=== PATIENT | female | born 1950 | race Caucasian/White ===

== ENCOUNTER 2017-04-01 19:00 | Inpatient (IN) | payer MEDICARE, OTHER ==
[~2017-04-01] VITALS: Ht 127 cm; Wt 46.3 kg
--- NOTE | ~2017-04-01 | PN ---
PATIENT:DEMOND HUANG MEDICAL RECORD: [id number] LOCATION:[facility] ADMISSION DATE: 04/01/17 PROGRESS NOTE DATE OF SERVICE: 04/14/2017 SUBJECTIVE: The patient's case was discussed with staff. She has no new complaint. OBJECTIVE: The patient denies intent to harm herself or others. She generally tolerates her medicines well. ASSESSMENT: No change in diagnoses. PLAN: Brief supportive and educational interventions were made. Long Term prognosis is guarded. I anticipate the patient can be transitioned out of the hospital soon if this level of improvement is maintained. TRANSINT:[id number] Voice Confirmation ID: [id number] DOCUMENT ID: [id number] LULI RUELAS MD at 1024 CC: [id number] DICTATION DATE: 04/14/17 1037 OUTREACH ASSISTANT: 04/14/17 1051 ADM IN [facility] [address] [place] [address]
--- NOTE | ~2017-04-01 | PN ---
PATIENT:DEMOND HUANG MEDICAL RECORD: [id number] LOCATION:[facility] ADMISSION DATE: 04/01/17 PROGRESS NOTE DATE OF SERVICE: 04/15/2017 SUBJECTIVE: The patient's case was discussed with staff. She has no new complaint. OBJECTIVE: The patient is in good behavioral control with limited insight about her condition. She tolerates her medicines well. ASSESSMENT: No change in diagnoses. PLAN: The patient can be reasonably transitioned out of the hospital today. She will have follow up with her outpatient primary care physician. Her assisted prognosis is guarded. TRANSINT:[id number] Voice Confirmation ID: [id number] DOCUMENT ID: [id number] LULI RUELAS MD at 0847 CC: [id number] DICTATION DATE: 04/15/17 1317 DIESEL ENGINE ERECTOR: 04/15/17 1403 DIS IN 04/15/17 [facility] [address] [place] [address]
--- NOTE | ~2017-04-01 | PN ---
PATIENT:DEMOND HUANG MEDICAL RECORD: [id number] LOCATION:[facility] ADMISSION DATE: 04/01/17 PROGRESS NOTE DATE OF SERVICE: 04/13/2017 SUBJECTIVE: The patient's case was discussed with staff. She has no new complaint. OBJECTIVE: The patient is significantly impaired cognitively, but has not been threatening to harm herself or others. ASSESSMENT: No change in diagnoses. PLAN: Brief supportive and educational interventions were made. Group Home prognosis is guarded. TRANSINT:[id number] Voice Confirmation ID: [id number] DOCUMENT ID: [id number] LULI RUELAS MD at 1024 CC: [id number] DICTATION DATE: 04/13/17 1502 BOOK JACKET COVER MACHINE OPERATOR: 04/13/17 1524 ADM IN [place] [id number] [place] [address]
--- NOTE | ~2017-04-01 | PN ---
PATIENT:DEMOND HUANG MEDICAL RECORD: [id number] LOCATION:[facility] ADMISSION DATE: 04/01/17 PROGRESS NOTE DATE OF SERVICE: 04/06/2017 SUBJECTIVE: No new complaint. OBJECTIVE: The patient has done relatively well. No new problems noted. Placement options will likely be narrowed to at least an assisted living type of situation. On exam, mood is euthymic. Affect is rather childlike. Speech tends to be terse. Content of thought is negative for overt psychosis. Sensorium shows no change. ASSESSMENT: No change in diagnosis. PLAN: 1. Continue current treatment plan. 2. Continue supportive therapy. TRANSINT:[id number] Voice Confirmation ID: [id number] DOCUMENT ID: [id number] GUILLERMINA HERNDON III, MD at 1045 CC: [id number] DICTATION DATE: 04/06/17 1128 SMOKE CHASER: 04/06/17 1337 ADM IN [place] [address] [place] [id number]
--- NOTE | ~2017-04-01 | PN ---
PATIENT:DEMOND HUANG MEDICAL RECORD: [id number] LOCATION:[facility] ADMISSION DATE: 04/01/17 PROGRESS NOTE DATE OF SERVICE: 04/05/2017 SUBJECTIVE: No new complaint. OBJECTIVE: The patient remains delusional. She has been cooperative for the most part taking medications as prescribed. On exam, mood is for the most part euthymic. Affect is somewhat child-like. Speech is very simple in content and somewhat terse. Content of thought is positive for delusional ideation as described above. Sensorium is unchanged. ASSESSMENT: No change in diagnosis. PLAN: 1. Continue current medications. 2. Continue supportive therapy. TRANSINT:[id number] Voice Confirmation ID: [id number] DOCUMENT ID: [id number] GUILLERMINA HERNDON III, MD at 1013 CC: [id number] DICTATION DATE: 04/05/17 1100 CHIEF OF HARBOR PATROL: 04/05/17 1241 ADM IN [place] [id number] [place] [address]
--- NOTE | ~2017-04-01 | PN ---
PATIENT:DEMOND HUANG MEDICAL RECORD: [id number] LOCATION:[facility] ADMISSION DATE: 04/01/17 PROGRESS NOTE DATE OF SERVICE: 04/12/2017 SUBJECTIVE: No new complaint. OBJECTIVE: Staff reports the patient continues to behave in an extremely childlike and "spoiled" fashion. She becomes extremely petulant and for lack of a better word simply throws temper tantrums when she does not get her way. She does not like to participate in group activities and will dramatically throw herself back in her chair when people attempt to have her become involved. From a medical standpoint, she remains entirely stable. It will be explained to the family that the patient's behavior will in large degree determine what her eventual placement will be. On exam, the patient's mood is irritable. Affect is extremely shallow and childlike. Speech is characterized by whining tone of voice. Facial expression is scowling. Content of thought is focused primarily on her needs and somatic complaints. Sensorium shows no change. ASSESSMENT: No change in diagnosis. PLAN: 1. Continue current medications. 2. Continue supportive therapy. TRANSINT:[id number] Voice Confirmation ID: [id number] DOCUMENT ID: [id number] GUILLERMINA HERNDON III, MD at 0657 CC: [id number] DICTATION DATE: 04/12/17 1138 DEADENER: 04/12/17 1203 ADM IN [place] [address] [place] [address]
--- NOTE | ~2017-04-01 | PN ---
PATIENT:DEMOND HUANG MEDICAL RECORD: [id number] LOCATION:[facility] ADMISSION DATE: 04/01/17 PROGRESS NOTE DATE OF SERVICE: 04/11/2017 SUBJECTIVE: The patient asks when the basketball game will come on TV. OBJECTIVE: The patient has been fairly compliant, but has great difficulty managing her own activities of daily living. She frequently seems confused. For example, when staff asked her where she was this morning, she maintained that she was in [place] in a halfway. On exam, the patient's mood is fairly pleasant. Affect is very simple and childlike. Speech is also simple in form and content. Content of thought is negative for overt psychosis. Sensorium shows no change. ASSESSMENT: No change in diagnosis. PLAN: 1. Maintain current medications. 2. Continue supportive therapy. TRANSINT:[id number] Voice Confirmation ID: [id number] DOCUMENT ID: [id number] GUILLERMINA HERNDON III, MD at 0632 CC: [id number] DICTATION DATE: 04/11/17 0936 WELL SERVICE FLOOR WORKER: 04/11/17 1204 ADM IN [address] [place] [address]
--- NOTE | ~2017-04-01 | PN ---
PATIENT:DEMOND HUANG MEDICAL RECORD: [id number] LOCATION:[facility] ADMISSION DATE: 04/01/17 PROGRESS NOTE DATE OF SERVICE: 04/07/2017 SUBJECTIVE: No new complaint. OBJECTIVE: Staff reports the patient was much more difficult to manage yesterday. She was very argumentative, noncompliant with medication and required frequent redirection. On exam today, the patient's mood is angry. Affect is brittle. Speech is very simple in form and content. Content of thought is positive for nonspecific persecutory ideation. Sensorium shows no change. ASSESSMENT: No change in diagnosis. PLAN: 1. Adjust medications as indicated. 2. Continue supportive therapy. TRANSINT:[id number] Voice Confirmation ID: [id number] DOCUMENT ID: [id number] GUILLERMINA HERNDON III, MD at 0510 CC: [id number] DICTATION DATE: 04/07/17 1153 EMPLOYEE'S REPRESENTATIVE: 04/07/17 1227 ADM IN [place] [id number] [place] [id number]
--- NOTE | ~2017-04-01 | PN ---
PATIENT:DEMOND HUANG MEDICAL RECORD: [id number] LOCATION:[facility] ADMISSION DATE: 04/01/17 PROGRESS NOTE DATE OF SERVICE: 04/04/2017 SUBJECTIVE: No new complaint. OBJECTIVE: The patient has been cooperative over the last 24 hours. She has been started on Seroquel 25 mg b.i.d. and is tolerating this well. On exam, mood is euthymic. Affect is very constricted. Speech is low in volume and terse. Content of thought is unchanged. Sensorium unchanged. ASSESSMENT: No change in diagnosis. PLAN: 1. Maintain current medications. 2. Continue supportive therapy. TRANSINT:[id number] Voice Confirmation ID: [id number] DOCUMENT ID: [id number] GUILLERMINA HERNDON III, MD at 1002 CC: [id number] DICTATION DATE: 04/04/17 1117 ELASTIC ATTACHER OVERLOCK: 04/04/17 1341 ADM IN [place] [id number] [place] [address]
--- NOTE | ~2017-04-01 | PN ---
PATIENT:DEMOND HUANG MEDICAL RECORD: [id number] LOCATION:[facility] ADMISSION DATE: 04/01/17 PROGRESS NOTE DATE OF SERVICE: 04/09/2017 SUBJECTIVE: No new complaint. OBJECTIVE: The patient continues to behave in a very immature fashion. However, she has not been combative. On exam, mood is childlike and petulant. Affect is very shallow. Speech tends to be tangential. Content of thought focuses on somatic concerns and demands. Sensorium shows no change. ASSESSMENT: No change in diagnosis. PLAN: 1. Continue current medications. 2. Continue supportive therapy. TRANSINT:[id number] Voice Confirmation ID: [id number] DOCUMENT ID: [id number] GUILLERMINA HERNDON III, MD at 0848 CC: [id number] DICTATION DATE: 04/09/17 0806 SORT MANAGER: 04/09/17 1314 ADM IN [facility] [address] [place] [address]
--- NOTE | ~2017-04-01 | PN ---
PATIENT:DEMOND HUANG MEDICAL RECORD: [id number] LOCATION:[facility] ADMISSION DATE: 04/01/17 PROGRESS NOTE DATE OF SERVICE: 04/08/2017 SUBJECTIVE: No new complaint. OBJECTIVE: Staff report the patient exhibits manipulative behaviors, especially with the family. She becomes petulant and childlike when she thinks that she is not being and responded to in the way that she prefers. On exam, the patient's mood is somewhat irritable. Affect is very shallow and childlike. Speech is simple in form and content. Content of thought is unchanged. Sensorium unchanged. ASSESSMENT: No change in diagnosis. PLAN: 1. Continue all current medications. 2. Continue supportive therapy. TRANSINT:[id number] Voice Confirmation ID: [id number] DOCUMENT ID: [id number] GUILLERMINA HERNDON III, MD at 0727 CC: [id number] DICTATION DATE: 04/08/17 1106 COUNTY ADMINISTRATOR: 04/08/17 1132 ADM IN [place] [id number] [place] [id number]
--- NOTE | ~2017-04-01 | PSY ---
PATIENT NAME:DEMOND HUANG MEDICAL RECORD: [id number] : 48 LOCATION:[facility] ADMISSION DATE: 04/01/17 ACCOUNT: [id number] PSYCHIATRIC EVALUATION DATE OF EVALUATION: 04/02/17 IDENTIFYING DATA: This is the first halfway admission for this 67-year-old single white female. HISTORY OF PRESENT ILLNESS: This patient was referred by Dr. Lawson. The patient had been living at home with 24-hour a day care. She has a chronic disability, but the details of this are not known at the present time. However, what is known is that the patient has been showing increasingly severe psychotic symptoms. She has been exhibiting paranoid delusional ideation. She claims for example that she had [place] her will. She has exhibited a great deal of generalized anxiety, avoidance behavior, restlessness and agitation. Because of markedly worsened mental status, she was referred for evaluation. PAST MEDICAL HISTORY: Significant for type 2 diabetes, GERD, apparent parkinsonism and hypercholesterolemia. FAMILY HISTORY: Unknown. SOCIAL HISTORY: The patient is single. She is cared for by caregivers. She does have a sister that lives next door to her who was involved in her care. ALLERGIES: LISTED PENICILLINS AND SULFONAMIDE ANTIBIOTICS WELL CODEINE. MEDICATIONS: At the time of admission included Glucophage, Glucotrol, Pepcid, Neurontin, Sinemet, Prozac, Inderal, and Lipitor. MENTAL STATUS: On exam, this is an extremely short (4 feet 2 inches) white female in no acute distress. Mood is indeed anxious. Affect is very childlike. Speech is low in volume, high pitched and exhibits a great deal of hesitancy. Content of thought as noted above, the patient has had delusional, paranoid ideation. On sensorium testing, the patient is oriented to person as well as to year and the fact that she is in [place]. She is not correctly oriented as to the month or the day of the week. Remote recall is difficult to assess. The patient is a poor historian. Short term and immediate recall appear to be significantly impaired. 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 AXIS II: Deferred. AXIS III: Hypertension, type 2 diabetes, GERD, parkinsonism, hypercholesterolemia. AXIS IV: Severe. AXIS V: 34. PLAN: 1. The patient is admitted for further medical and psychiatric workup. 2. Daily supportive therapy. 3. We will work with family and referring agency regarding aftercare. TRANSINT:[id number] Voice Confirmation ID: [id number] DOCUMENT ID: [id number] GUILLERMINA HERNDON III, MD at 1830 CC: [id number] DICTATION DATE: 04/02/17 1119 TAFE LECTURER: 04/02/17 1230 ADM IN [place] [id number] [place] [address]
[2017-04-01 19:41] VITALS: BP 170/99; BMI 28.7
[2017-04-01 20:15] VITALS: BP 170/099
[2017-04-01 21:53] LABS: APPEARANCE HAZY (CLEAR); BILIRUBIN NEGATIVE (NEGATIVE); COLOR YELLOW (YELLOW); GLUCOSE NEGATIVE (NEGATIVE); KETONE NEGATIVE (NEGATIVE); NITRITE NEGATIVE (NEGATIVE); PROTEIN TRACE mg/dL (NEGATIVE); UROBILINOGEN NORMAL (NORMAL); WHITE CELLS - URINE 25-50 /hpf (0-5)
[2017-04-01 21:54] LABS: BACTERIA MANY /hpf (NONE SEEN); EPITHELIAL CELLS 0-5 /hpf (0-5); RED CELLS - URINE 0-5 /hpf (0-5)
[2017-04-01] MEDS ORDERED: BUSPAR10 MG PO (22:44)
[2017-04-01] MEDS ORDERED: PEPCID20 MG PO (22:44)
[2017-04-01] MEDS ORDERED: GLUCOTROL 5 MG T5 MG PO (22:45)
[2017-04-01] MEDS ORDERED: GLUCOPHAGE500 MG PO (22:46)
[2017-04-01] MEDS ORDERED: PROPRANOLOL HCL20 MG PO (22:47)
[2017-04-01] MEDS ORDERED: GABAPENTIN100 MG PO (22:47)
[2017-04-01] MEDS ORDERED: PROZAC10 MG PO (22:48)
[2017-04-01] MEDS ORDERED: CARBIDOPA-LEVO1 EAC4 PO (22:48)
[2017-04-01] MEDS ORDERED: LIPITOR20 MG PO (22:50)
[2017-04-02 05:59] LABS: BASOPHILS 0.1 % (0-2); EOSINOPHILS 2.8 % (0-7); HEMOGLOBIN 12.2 g/dL (12-16); IMMATURE GRANULOCYTES 0.2 % (0-5); LYMPHOCYTES 23.4 % (15-50); MCH 30.2 pg (26.0-34.0); MCHC 34.9 g/dL (31.0-37.0); MCV 86.6 fL (80.0-100.0); MEAN PLATELET VOLUME 9.3 fL (7.4-10.4); MONOCYTES 9.5 % (2-11); PLATELET COUNT 180 10x3/uL (130-400); RBC 4.04 10x6/uL (4.00-5.40); RDW 13.5 % (11.5-14.5); WBC 8.2 10x3/uL (4.8-10.8)
[2017-04-02 06:25] LABS: ALBUMIN 3.5 g/dL (3.4-5.0); ANION GAP 15.9 mmol/L (8-16); BILIRUBIN - TOTAL 1.3 mg/dL (0.2-1.3); CALCIUM 8.7 mg/dL (8.5-10.1); CARBON DIOXIDE 24.5 mmol/L (21.0-32.0); CHOL - HDL RATIO 2.1 ratio (2.3-4.1); CREATININE - SERUM 1.4 mg/dL (0.6-1.3); LDL-HDL RATIO 0.3 ratio (1.5-3.5); POTASSIUM - SERUM 3.4 mmol/L (3.5-5.1); PROTEIN - SERUM 6.4 g/dL (6.4-8.2); THYROID STIMULATING HORMONE 1.88 uIU/mL (0.36-3.74)
[2017-04-02 06:38] LABS: HEMOGLOBIN A1C 6.6 % (4.8-6.0)
[2017-04-02 07:43] VITALS: BP 148/091
[2017-04-02 19:30] VITALS: BP 115/71
[2017-04-03 08:30] VITALS: BP 151/83
[2017-04-03 19:30] VITALS: BP 140/76
[2017-04-04 06:07] LABS: VITAMIN D 25 HYDROXY 21.7 ng/mL (30.0-100.0)
[2017-04-04 08:46] VITALS: BP 139/076
[2017-04-04 12:12] LABS: FOLATE (FOLIC ACID) - SERUM 9.7 ng/mL (>3.0)
[2017-04-04 15:56] VITALS: BMI 28.7
[2017-04-04 19:54] VITALS: BP 155/1
[2017-04-05 07:26] LABS: RAPID PLASMA REAGIN Non Reactive (Non Reactive)
[2017-04-05 08:00] VITALS: BP 130/73
[2017-04-05 14:42] VITALS: Ht 127 cm; Wt 46.3 kg
[2017-04-05 21:23] VITALS: BP 139/84
[2017-04-06 08:00] VITALS: BP 152/87
[2017-04-07 10:00] VITALS: BP 150/87
[2017-04-07 19:43] VITALS: BP 148/70
[2017-04-08 09:51] VITALS: BP 130/97
[2017-04-08 19:44] VITALS: BP 136/87
[2017-04-09 10:17] VITALS: BP 171/94
[2017-04-09 19:27] VITALS: BP 141/53
[2017-04-10 07:00] VITALS: BP 165/95
[2017-04-11 06:24] LABS: ANION GAP 13.3 mmol/L (8-16); CALCIUM 8.5 mg/dL (8.5-10.1); CARBON DIOXIDE 27.1 mmol/L (21.0-32.0); CREATININE - SERUM 1.4 mg/dL (0.6-1.3); POTASSIUM - SERUM 3.4 mmol/L (3.5-5.1)
[2017-04-11 07:00] VITALS: BP 147/72
[2017-04-11 20:56] VITALS: BP 165/113
[2017-04-12 10:02] VITALS: BP 171/96
[2017-04-12 19:58] VITALS: BP 154/78
[2017-04-13 10:09] VITALS: BP 170/69
[2017-04-13 19:59] VITALS: BP 151/80
[2017-04-14 10:22] VITALS: BP 140/80
[2017-04-14 19:31] VITALS: BP 161/91
[2017-04-15 09:22] VITALS: BP 148/64
[2017-04-15] MEDS ORDERED: ACETAMINOPHEN325 MG PO (09:44)
[2017-04-15] MEDS ORDERED: SEROQUEL25 MG PO (09:45)
[2017-04-15] MEDS ORDERED: ATIVAN0.5 MG PO (09:45)
[2017-04-15] MEDS ORDERED: FLORAJEN3 CAPS460 MG PO (09:46)
[2017-04-15] MEDS ORDERED: INVOKANA100 MG PO (09:46)
[2017-04-15] MEDS ORDERED: LIDODERM 5 %1 PATCH TRANSDERM (09:47)
[2017-04-15] MEDS ORDERED: GLIMEPIRIDE2 MG PO (09:47)
[2017-04-15] MEDS ORDERED: VITAMIN D5000 UNIT PO (09:47)
[2017-04-15] MEDS ORDERED: VITAMIN B-121000 MCG PO (09:48)
== END 2017-04-15 10:30 | disposition home health service (06) | DRG 57 ==
LOC: D.PSYCH 19:00
PROVIDERS: Family Medicine; Psychiatry & Neurology Psychiatry
DX: G30.1 Alzheimer's disease with late onset (principal); F02.81 Dementia in other diseases classified elsewhere, unspecified severity, with behavioral disturbance; N17.9 Acute kidney failure, unspecified; N39.0 Urinary tract infection, site not specified; G20 Parkinson's disease; E11.22 Type 2 diabetes mellitus with diabetic chronic kidney disease; N18.9 Chronic kidney disease, unspecified; K21.9 Gastro-esophageal reflux disease without esophagitis; E78.00 Pure hypercholesterolemia, unspecified; E78.5 Hyperlipidemia, unspecified; B96.1 Klebsiella pneumoniae [K. pneumoniae] as the cause of diseases classified elsewhere; R26.9 Unspecified abnormalities of gait and mobility; E53.8 Deficiency of other specified B group vitamins; E55.9 Vitamin D deficiency, unspecified; M19.90 Unspecified osteoarthritis, unspecified site

== ENCOUNTER 2017-04-17 09:17 | Emergency (ER) | payer MEDICARE ==
[2017-04-05 14:42] VITALS: BMI 28.6
[~2017-04-17 09:17] MED LIST: ACETAMINOPHEN325 MG PO; ATIVAN0.5 MG PO; BUSPAR10 MG PO; CARBIDOPA-LEVO1 EAC4 PO; FLORAJEN3 CAPS460 MG PO; GABAPENTIN100 MG PO; GLIMEPIRIDE2 MG PO; GLUCOPHAGE500 MG PO; GLUCOTROL 5 MG T5 MG PO; INVOKANA100 MG PO; LIDODERM 5 %1 PATCH TRANSDERM; LIPITOR20 MG PO; PEPCID20 MG PO; PROPRANOLOL HCL20 MG PO; PROZAC10 MG PO; SEROQUEL25 MG PO; VITAMIN B-121000 MCG PO; VITAMIN D5000 UNIT PO
== END 2017-04-17 11:18 | disposition home or self-care (01) ==
LOC: D.ER 09:17
DX: S00.83XA Contusion of other part of head, initial encounter (principal); W05.0XXA Fall from non-moving wheelchair, initial encounter; Y93.89 Activity, other specified; Y92.129 Unspecified place in nursing home as the place of occurrence of the external cause; I51.7 Cardiomegaly; E11.9 Type 2 diabetes mellitus without complications; G20 Parkinson's disease; K21.9 Gastro-esophageal reflux disease without esophagitis; G30.9 Alzheimer's disease, unspecified; F02.80 Dementia in other diseases classified elsewhere, unspecified severity, without behavioral disturbance, psychotic disturbance, mood disturbance, and anxiety

== ENCOUNTER 2017-04-21 06:57 | Emergency (ER) | payer MEDICARE ==
[2017-04-05 14:42] VITALS: BMI 28.6
[2017-04-21 08:10] LABS: ALBUMIN 3.3 g/dL (3.4-5.0); ALKALINE PHOSPHATASE 149 U/L (46-116); ALT (SGPT) 19 U/L (10-68); BILIRUBIN - TOTAL 1.02 mg/dL (0.2-1.3); CALC OSMOLALITY 299 mosm/kg (275-300); CALCIUM 8.9 mg/dL (8.5-10.1); CARBON DIOXIDE 26.3 mmol/L (21.0-32.0); CHLORIDE - SERUM 109 mmol/L (98-107); CREATININE - SERUM 1.2 mg/dL (0.6-1.3); GLUCOSE 320 mg/dL (74-106); POTASSIUM - SERUM 3.4 mmol/L (3.5-5.1); PROTEIN - SERUM 6.8 g/dL (6.4-8.2); SODIUM 144 mmol/L (136-145); UREA NITROGEN 16 mg/dL (7-18); eGFR NON AFRICAN AMERICAN 47 mL/min (90-120)
[2017-04-21 08:12] LABS: BASOPHILS 0.2 % (0-2); EOSINOPHILS 2.6 % (0-7); HEMATOCRIT 36.9 % (36.0-48.0); HEMOGLOBIN 12.6 g/dL (12-16); IMMATURE GRANULOCYTES 0.3 % (0-5); LYMPHOCYTES 10.6 % (15-50); MCH 30.3 pg (26.0-34.0); MCHC 34.1 g/dL (31.0-37.0); MCV 88.7 fL (80.0-100.0); MEAN PLATELET VOLUME 9.5 fL (7.4-10.4); MONOCYTES 5.8 % (2-11); NEUTROPHILS 80.5 % (40-80); PLATELET COUNT 178 10x3/uL (130-400); RBC 4.16 10x6/uL (4.00-5.40); RDW 13.6 % (11.5-14.5); WBC 9.8 10x3/uL (4.8-10.8)
[2017-04-21 08:18] LABS: KETONE - SERUM NEGATIVE (NEGATIVE)
[2017-04-21 08:21] LABS: APPEARANCE CLOUDY (CLEAR); COLOR YELLOW (YELLOW)
[2017-04-21 08:22] LABS: BACTERIA MANY /hpf (NONE SEEN); BILIRUBIN NEGATIVE (NEGATIVE); EPITHELIAL CELLS 0-5 /hpf (0-5); GLUCOSE 1000 mg/dL (NEGATIVE); KETONE NEGATIVE (NEGATIVE); NITRITE NEGATIVE (NEGATIVE); PROTEIN TRACE mg/dL (NEGATIVE); RED CELLS - URINE 0-5 /hpf (0-5); UROBILINOGEN NORMAL (NORMAL); YEAST >1+ /hpf (NONE SEEN)
[2017-04-21 10:27] LABS: CALCIUM 8.3 mg/dL (8.5-10.1); CARBON DIOXIDE 25.5 mmol/L (21.0-32.0); CREATININE - SERUM 1.2 mg/dL (0.6-1.3)
[2017-04-21 10:28] LABS: ANION GAP 11.5 mmol/L (8-16)
== END 2017-04-21 15:27 | disposition home or self-care (01) ==
LOC: D.ER 06:57
PROVIDERS: Family Medicine
DX: N39.0 Urinary tract infection, site not specified (principal); E11.65 Type 2 diabetes mellitus with hyperglycemia; G30.9 Alzheimer's disease, unspecified; F02.80 Dementia in other diseases classified elsewhere, unspecified severity, without behavioral disturbance, psychotic disturbance, mood disturbance, and anxiety; K21.9 Gastro-esophageal reflux disease without esophagitis; G20 Parkinson's disease

== ENCOUNTER 2017-07-10 19:46 | Emergency (ER) | payer MEDICARE ==
[2017-04-05 14:42] VITALS: BMI 28.6
[2017-07-10 20:06] LABS: BASOPHILS 0.3 % (0-2); EOSINOPHILS 3.6 % (0-7); HEMATOCRIT 38.6 % (36.0-48.0); HEMOGLOBIN 12.8 g/dL (12-16); IMMATURE GRANULOCYTES 0.3 % (0-5); MCH 29.8 pg (26.0-34.0); MCHC 33.2 g/dL (31.0-37.0); MCV 89.8 fL (80.0-100.0); MEAN PLATELET VOLUME 9.4 fL (7.4-10.4); MONOCYTES 10.1 % (2-11); NEUTROPHILS 57.7 % (40-80); PLATELET COUNT 148 10x3/uL (130-400); RDW 12.9 % (11.5-14.5); WBC 7.5 10x3/uL (4.8-10.8)
[2017-07-10 20:50] LABS: ALBUMIN 3.5 g/dL (3.4-5.0); ALKALINE PHOSPHATASE 132 U/L (46-116); ALT (SGPT) 11 U/L (10-68); CALC OSMOLALITY 286 mosm/kg (275-300); CALCIUM 9.2 mg/dL (8.5-10.1); CARBON DIOXIDE 25.5 mmol/L (21.0-32.0); CHLORIDE - SERUM 108 mmol/L (98-107); CREATININE - SERUM 1.3 mg/dL (0.6-1.3); POTASSIUM - SERUM 3.6 mmol/L (3.5-5.1); PROTEIN - SERUM 6.9 g/dL (6.4-8.2); SODIUM 141 mmol/L (136-145); UREA NITROGEN 33 mg/dL (7-18); eGFR NON AFRICAN AMERICAN 43 mL/min (90-120)
[2017-07-10 20:52] LABS: GLUCOSE 80 mg/dL (74-106)
[2017-07-10 20:56] LABS: CREATINE KINASE 56 UL (21-215); TROPONIN-I < 0.017 ng/mL (0.000-0.060)
== END 2017-07-10 22:37 | disposition home or self-care (01) ==
LOC: D.ER 19:46
PROVIDERS: Family Medicine
DX: R55 Syncope and collapse (principal); Z86.59 Personal history of other mental and behavioral disorders; E11.9 Type 2 diabetes mellitus without complications; Z79.4 Long term (current) use of insulin; K21.9 Gastro-esophageal reflux disease without esophagitis; G20 Parkinson's disease; R00.1 Bradycardia, unspecified

== ENCOUNTER 2018-04-19 03:21 | Emergency (ER) | payer MEDICARE ==
[~2018-04-19] VITALS: Ht 127 cm; Wt 59.1 kg
[2018-04-19 03:29] VITALS: Ht 127 cm; Wt 59.1 kg
[2018-04-19 05:49] VITALS: BP 165/92
== END 2018-04-19 05:50 | disposition home or self-care (01) ==
LOC: D.ER 03:21
DX: K21.9 Gastro-esophageal reflux disease without esophagitis (principal)